=== PATIENT | female | born 1990 | race African-American/Black ===

== ENCOUNTER 2017-11-06 09:20 | Emergency (ER) | payer OTHER ==
[~2017-11-06] VITALS: Ht 157.5 cm; Wt 68.0 kg
[~2017-11-06 09:20] MED LIST: IBUPROFEN 600600 M1 PO; NOHOMEMEDICATIONS; PEPCID20 MG PO; ZOFRAN ODT4 MG PO
[2017-11-06 09:50] LABS: URINE BILIRUBIN NEGATIVE (Negative); URINE BLOOD TRACE (Negative); URINE CLARITY CLEAR; URINE COLOR YELLOW; URINE GLUCOSE-RANDOM* NEGATIVE (Negative); URINE KETONES NEGATIVE (Negative); URINE LEUKOCYTES NEGATIVE (Negative); URINE NITRITE NEGATIVE (Negative); URINE PROTEIN (DIPSTICK) NEGATIVE (Negative)
[2017-11-06] MEDS ORDERED: PRENATAL VITAM1 EAC8 PO (10:17)
[2017-11-06] MEDS ORDERED: OSELB75 PO (10:31)
[2017-11-06] MEDS ORDERED: ONDANSETRON HCL4 M2 PO (10:31)
== END 2017-11-06 11:15 | disposition home or self-care (01) ==
LOC: ER 09:20
PROVIDERS: Nurse Practitioner
DX: J09.X2 Influenza due to identified novel influenza A virus with other respiratory manifestations (principal); Z88.1 Allergy status to other antibiotic agents; Z88.8 Allergy status to other drugs, medicaments and biological substances

== ENCOUNTER 2017-11-13 23:08 | Emergency (ER) | payer OTHER ==
[~2017-11-13] VITALS: Ht 157.5 cm; Wt 69.0 kg
[~2017-11-13 23:08] MED LIST changes: +ONDANSETRON HCL4 M2 PO; +OSELB75 PO; +PRENATAL VITAM1 EAC8 PO
[2017-11-13] MEDS ORDERED: AUGMENTIN 875-1 EACH PO (23:48)
== END 2017-11-13 23:56 | disposition home or self-care (01) ==
LOC: ER 23:08
DX: H66.92 Otitis media, unspecified, left ear (principal); Z88.1 Allergy status to other antibiotic agents; Z88.8 Allergy status to other drugs, medicaments and biological substances